=== PATIENT | female | born 1970 | race Caucasian/White ===

== ENCOUNTER 2018-12-14 20:04 | Emergency (ER) | payer SELFPAY ==
[~2018-12-14] VITALS: Ht 157.5 cm; Wt 88.6 kg
[2018-12-14] MEDS ORDERED: ALBUTEROL SUL0.083 % IN (20:15)
[2018-12-14] MEDS ORDERED: ADVAIR DISK1 INH (20:15)
--- NOTE | 2018-12-14 20:35 | NUR ---
BREATHING TREATMENT GIVEN BACK TO BACK FOR SHORTNESS OF BREATH. BREATHING TECH. FOR GOOD DEPOSITION TO THE LUNGS.
[2018-12-14 20:45] LABS: HEMATOCRIT 39.5 % (37.0-47.0); HEMOGLOBIN 12.8 g/dl (12.0-16.0); IMMATURE GRANULOCYTES 0.2 % (0.0-5.0); MEAN CELL VOLUME 88.6 fL CALC (80.0-100.0); MEAN CORPUSCULAR HGB 28.7 pG CALC (26.0-32.0); MEAN CORPUSCULAR HGB CONC 32.4 g/L CALC (32.0-36.0); NEUT# 3.83 thou/uL (2.00-7.15); RED BLOOD COUNT 4.46 mill/uL (4.20-5.60); RED CELL DISTRI WIDTH 13.2 % (11.5-15.5)
[2018-12-14] MEDS ORDERED: PREDNISONE50 MG PO (21:31)
[2018-12-14] MEDS ORDERED: ADVAIR DISK1 IN (21:31)
[2018-12-14 21:34] VITALS: BP 106/63
== END 2018-12-14 21:42 | disposition home or self-care (01) | DRG 203 ==
LOC: ED 20:04
PROVIDERS: Family Medicine
DX: J45.901 Unspecified asthma with (acute) exacerbation (principal)